=== PATIENT | female | born 1955 | race African-American/Black ===

== ENCOUNTER 2016-12-06 13:17 | Inpatient (IN) ==
[2016-12-06] MEDS ORDERED: SODIUM CHLORIDE 0.9% 1,000 ML IV STA (13:40)
--- NOTE | 2016-12-06 14:13 | Emergency Department Note ---
I, Erika Jones, am scribing for, and in the presence of, Bree Welsh DO 14:03. IBlaise Debra, DO, personally performed the services described in this documentation, ascribed by Erika Jones in my presence, and it is both accurate and complete 413 . Arrival - Arrival Chief Complaint: Weakness Stated Complaint: weak ED Nursing Triage Note: C/O HAVING WEAKNESS SINCE WAKING UP THIS MORNING, STATES BOTH OF HER LEGS ARE CRAMPING., STATES WHEN SHE TRIES TO STAND UP SHE GETS DIZZY , MOVEMENT MAKES DIZZINESS WORSE., DENIES HAVING ANY PAIN , " JUST FEEL BAD" , STATES HER GLUCOSE LEVEL HAS BEEN UP AND DOWN Mode of Arrival: Ambulatory Limitations: No Limitations Source: Patient, RN Notes Reviewed Time Seen by Provider: 12/06/16 13:38 - History of Present Illness HPI Narrative: Patient is a 61 y/o black female presenting to the ED accompanied by daughter with c/o vertigo with an onset of a few weeks, worsening today. Patient reports that vertigo occurs most often upon changing position and exertional activities. She states that while hanging clothes up she became near syncopal. Patient experienced some bilateral leg cramps that onset this morning around 0200/0300 and has since felt weak. Patient does have a history of diabetes mellitus, but levels have remained within normal limits. Patient has no other complaint/pain. Allergies/Adverse Reactions: Allergies Allergy/AdvReac Type Severity Reaction Status Date / Time No Known Allergies Allergy Unverified 12/06/16 13:24 Home Medications: Home Medications Medication Instructions Recorded Confirmed Type Aspirin EC Tab 81 mg PO QAM 12/06/16 12/06/16 History Lisinopril 20 mg PO QAM 12/06/16 12/06/16 History Potassium Chloride [Klor-Con M20] 20 meq PO QAM 12/06/16 12/06/16 History Triamterene/Hydrochlorothiazid 1 each PO QAM 12/06/16 12/06/16 History [Triamterene-Hctz 75-50 mg Tab] glyBURIDE [Glyburide] 10 mg PO BID 12/06/16 12/06/16 History metFORMIN [Glucophage] 1,000 mg PO BID W/MEALS 12/06/16 12/06/16 History Review of System - Review of System 12 point system: reviewed and no additional remarkable complaints except as stated - Review of System Constitutional: Present: weakness Respiratory: Absent: respiratory distress Cardiovascular: Present: as per HPI, syncope. Absent: chest pain Gastrointestinal: Absent: abdominal pain, nausea, vomiting, diarrhea, constipation Genitourinary female: Absent: dysuria, frequency, urgency Musculoskeletal: Absent: arm pain, back pain, leg pain, neck pain Skin: Absent: rash Neurological: Present: vertigo. Absent: headache Psychiatric: Absent: anxiety, depression Hematological/Lymphatic: Absent: easy bleeding, easy bruising Medical,Surgical,& Family Hx - Medical History Cardio: History of: Hypertension Endocrine: History of: Diabetes Mellitus (IDDM), Diabetes Mellitus (NIDDM), Dyslipidemia Respiratory: History of: Asthma - Social History Smoking Status: Never smoker Frequency of Alcohol Use: None Type of Drug Use: None Exam Vital Signs: Vital Signs Temperature 97.6 F 12/06/16 13:19 Pulse Rate 101 H 12/06/16 13:19 Respiratory Rate 16 12/06/16 14:15 Blood Pressure 137/96 12/06/16 13:19 O2 Sat by Pulse Oximetry 96 12/06/16 13:19 - General General appearance: alert, in no apparent distress - Head Head exam: Present: atraumatic, normocephalic, normal inspection - Eye Eye exam: Present: normal appearance, PERRL, EOMI - ENT ENT exam: Present: mucous membranes dry, other (pale mucous membranes). Absent : normal oropharynx - Neck Neck exam: Present: normal inspection, full ROM, trachea midline - Chest Chest inspection: Present: normal inspection, symmetric chest wall rise - Respiratory Respiratory exam: Present: normal lung sounds bilaterally. Absent: rales, rhonchi, wheezes - Cardiovascular Cardiovascular exam: Present: normal rhythm, tachycardia, normal heart sounds. Absent: regular rate, murmur, rubs, gallop - Abdominal Exam Abdominal exam: Present: soft, distention, normal bowel sounds. Absent: tenderness - Extremities Exam Extremities exam: Present: normal inspection. Absent: pedal edema - Back Exam Back exam: Present: normal inspection - Neurological Exam Neurological exam: Present: alert, oriented X3, CN II-XII intact. Absent: motor sensory deficit - Psychiatric Psychiatric exam: Present: normal affect, normal mood - Skin Skin exam: Present: warm, dry, intact, normal color Course Course Narrative: spoke with Griffin who will admit pt to hospitalist service Results - Labs CBC & BMP: 12/06/16 14:03 12/06/16 14:03 Lab Results: I have reviewed the patients labs Labs: Laboratory Tests 12/06/16 12/06/16 13:40 14:03 Sodium 133 L Potassium 4.8 Chloride 99 Carbon Dioxide 26 BUN 23 H Creatinine 1.20 H Glucose 178 H Albumin 2.8 L Globulin 4.6 H Albumin/Globulin Ratio 0.6 L Urine Color Yellow Urine Appearance Cloudy Urine pH 6.0 Ur Specific [place] 1.013 Urine Protein Negative Urine Glucose (UA) 50 Urine Ketones Negative Urine Blood Negative Urine Nitrate Negative Urine Bilirubin Negative Urine Urobilinogen < 2.0 H Urine Leukocytes Moderate H Urine RBC 1 Urine WBC 3 Ur Squamous Epith Cells Occasional Urine Bacteria Occasional Laboratory Tests 12/06/16 14:03 WBC 9.5 RBC 3.84 Hgb 7.2 L Hct 25.6 L MCV 66.7 L MCH 19 L MCHC 28.1 L RDW 18.0 H Plt Count 495 H Lymph % (Auto) 14.5 L [place] # (Auto) 1.0 H Disposition Clinical Impression: Anemia Case discussed with: patient, patient's family Disposition: Still a Patient Condition: Stable Time of Disposition: 16:44
[2016-12-06 14:21] LABS: Basophils % 0.4 % (0.0-0.8); Eosinophils # 0.2 10*3/uL (0.0-0.87); Eosinophils % 1.8 % (0.00-10.9); Hematocrit 25.6 VOL% (35.7-47.0); Hemoglobin 7.2 GM/DL (12.0-16.0); Immature Granulocytes % 0.6 %; Immature Granulocytes Absolute 0.06 #; Lymphocytes # 1.4 10*3/uL (1.4-4.0); Lymphocytes % 14.5 % (21.3-54.2); Mean Corpuscular HGB Conc 28.1 GM/DL (32-36); Mean Corpuscular Hemoglobin 19 PG (27-34); Mean Corpuscular Volume 66.7 FL (87-102); Mean Platelet Volume 11.1 FL (9.6-12.0); Monocytes % 10.6 % (1.7-12.7); Neutrophils # 6.8 10*3/uL (1.4-7.4); Neutrophils % 72.1 % (38.7-73.9); Platelet Count 495 T/CUMM (130-400); Red Blood Count 3.84 MC/CUMM (3.8-5.5); White Blood Count 9.5 T/CUMM (4-12)
[2016-12-06 14:40] LABS: Alanine Aminotransferase 19 U/L (13-56); Albumin 2.8 G/DL (3.4-5.0); Alkaline Phosphatase 97 U/L (45-117); Aspartate Amino Transferase 18 U/L (0-37); Bilirubin,Total < 0.39 MG/DL (0.2-1.0); Blood Urea Nitrogen 23 MG/DL (7-18); Calcium 9.8 MG/DL (8.5-10.1); Glucose 178 MG/DL (74-106); Osmolality,Calculated 273.4 MOS/KG (273-304); Potassium 4.8 MMOL/L (3.5-5.1); Sodium 133 MMOL/L (136-145); Total Protein 7.4 G/DL (6.4-8.3)
[2016-12-06 14:40] LABS: Apearance,Urine CLOUDY (Clear); Bacteria,Urine Occasional /HPF (Few); Bilirubin,Urine Negative (Negative); Blood, Urine Negative (Negative); Glucose,Urine (UA) 50 mg/dL (Negative); Ketones,Urine Negative (Negative); Nitrite,Urine Negative (Negative); Protein,Urine Negative; RBC,Urine 1 /HPF (0-4); Squamous Epithelial Cell,Urine Occasional /HPF (0-10); Urine Color Yellow (Yellow); Urine Specific Gravity 1.013 (1.001-1.035); Urine Urobilinogen < 2.0 EU/DL (0.2-1.0); WBC,Urine 3 /HPF (0-6)
--- NOTE | 2016-12-06 17:29 | Hospitalist History & Physical ---
Assessment and Plan - Time spent with patient Time spent with patient: Greater than 30 minutes (1) Anemia Status: Acute Assessment and plan: Patient is being admitted for anemia. We are ordering orthostatic vital signs as well as stool for occult blood along with anemia studies. She is currently hemodynamically stable without any evidence of active bleeding therefore will type and screen and not transfuse unless she becomes symptomatic or hemodynamically unstable. Will begin proton pump inhibitor and consider outpatient versus inpatient GI evaluation. She states that she has outpatient colonoscopy scheduled for Thursday and [place], [place]. Current Visit: Yes (2) Hypertension Status: Chronic Assessment and plan: She is currently hemodynamically stable. We will continue her current medical regimen. Current Visit: Yes Qualifiers: Hypertension type: essential hypertension Qualified Code(s): I10 - Essential (primary) hypertension (3) Diabetes mellitus Status: Chronic Assessment and plan: We will continue her current medical regimen along with Accu-Cheks and sliding scale. Current Visit: Yes Qualifiers: Diabetes mellitus type: type 2 History of Present Illness Chief complaint: Legs cramping and dizziness History of present illness: Ms. Olguin is a 61 year old -[place] female who states this morning she began having bilateral lower extremity muscle cramps. Later in the morning she was standing up and felt lightheaded without distinct vertigo, had mild shortness of breath associated with this and did break out in a sweat. However throughout the day she had no distinct positional symptomatology. She is currently sitting on the side of bed without complaints. She denies any recent fever, chills, nausea, vomiting, diarrhea, constipation, melena, hematochezia, hematemesis, headache, visual or auditory disturbances, focal motor weakness or paresthesias, vertigo, tinnitus, hearing loss, upper respiratory tract symptoms , weight loss, dysuria, hematuria, urinary frequency urgency or incontinence. She denies any frequent heartburn or indigestion but does have occasional upset stomach. She states that she has lactose intolerance. She has had prior colonoscopy but has been many years ago and she does have an outpatient colonoscopy scheduled in [place], [place] on Thursday. Her primary care provider is in [place], [place]. Home Medications Medication Instructions Recorded Confirmed Type Aspirin EC Tab 81 mg PO QAM 12/06/16 12/06/16 History Lisinopril 20 mg PO QAM 12/06/16 12/06/16 History Potassium Chloride [Klor-Con M20] 20 meq PO QAM 12/06/16 12/06/16 History Triamterene/Hydrochlorothiazid 1 each PO QAM 12/06/16 12/06/16 History [Triamterene-Hctz 75-50 mg Tab] glyBURIDE [Glyburide] 10 mg PO BID 12/06/16 12/06/16 History metFORMIN [Glucophage] 1,000 mg PO BID W/MEALS 12/06/16 12/06/16 History Allergies Allergy/AdvReac Type Severity Reaction Status Date / Time No Known Allergies Allergy Unverified 12/06/16 13:24 Medical,Surgical,& Family Hx - Medical History Cardio: History of: Hypertension Endocrine: History of: Diabetes Mellitus (NIDDM), Dyslipidemia Respiratory: History of: Asthma - Surgical History Reproductive Surgeries: Surgical HX of;: Hysterectomy - Family History Family History: Reports;: Family Cancer (She has several aunts with cancer) - Social History Smoking Status: Never smoker Frequency of Alcohol Use: None Type of Drug Use: None Functional capacity: independent ambulation 12 point system: reviewed and no additional remarkable complaints except as stated Exam - Constitutional Vitals: Period Temp Pulse Resp BP Sys/Lauren Pulse Ox Last 24 Hr 97.6 F 101 16-20 137/96 96 General appearance: no acute distress - Head Head exam: Present: normocephalic, atraumatic - Eye Eye exam: Present: EOMI, other (Pale conjunctiva) Pupils: Present: MYRA - ENT ENT exam: Present: normal oropharynx - Neck Neck exam: Present: normal inspection. Absent: lymphadenopathy, meningismus, tenderness, thyromegaly - Respiratory Respiratory exam: Present: clear to auscultation bilaterally. Absent: rales, rhonchi, wheezes - Cardiovascular Cardiovascular exam: Present: regular rate and rhythm. Absent: gallop, JVD, rubs, systolic murmur, tachycardia - GI/Abdominal GI/Abdominal exam: Present: normal bowel sounds, soft. Absent: ascites, distended, mass, organomegaly, tenderness, rebound - Extremities Exam Extremities exam: Present: normal capillary refill. Absent: calf tenderness, edema - Back Exam Back exam: Present: normal inspection. Absent: CVA tenderness (L), CVA tenderness (R) - Neurological Exam Neurological exam: Present: alert, oriented X3, CN II-XII intact. Absent: motor sensory deficit - Psychiatric Psychiatric exam: Present: normal affect, normal mood. Absent: agitated, anxious - Skin Skin exam: Present: warm, dry. Absent: erythema, petechiae, rash Results - Labs CBC & BMP: 12/06/16 14:03 12/06/16 14:03 Lab Results: I have reviewed the past 24 hour labs Quality Measures - VTE Deep Vein Thrombosis/Pulmonary Embolism Present on Admission: No
[2016-12-06] MEDS ORDERED: PANTOPRAZOLE 40 MG VIAL IV STA (17:43)
[2016-12-06] MEDS ORDERED: PANTOPRAZOLE 40 MG VIAL IV ONE (18:03)
[2016-12-06] MEDS ORDERED: GLUCAGON 1 MG VIAL IM PRN (18:42)
[2016-12-06] MEDS ORDERED: ONDANSETRON 4 MG/2 ML VIAL IV PRN (18:42)
[2016-12-06] MEDS ORDERED: DEXTROSE 50% 25 GM/50 ML VIAL IV PRN (18:42)
[2016-12-06] MEDS: SODIUM CHLORIDE 0.9% 1,000 ML IV SCH (20:21)
[2016-12-06] MEDS: glyBURIDE 5 MG TABLET PO SCH (21:07)
[2016-12-06] MEDS: INSULIN LISPRO 100 UNIT/ML SUBCUT SCH (21:19)
[2016-12-06 21:37] LABS: Basophils % 0.3 % (0.0-0.8); Eosinophils # 0.2 10*3/uL (0.0-0.87); Eosinophils % 2.8 % (0.00-10.9); Hematocrit 23.4 VOL% (35.7-47.0); Hemoglobin 6.5 GM/DL (12.0-16.0); Immature Granulocytes % 0.4 %; Immature Granulocytes Absolute 0.03 #; Lymphocytes # 1.9 10*3/uL (1.4-4.0); Lymphocytes % 23.5 % (21.3-54.2); Mean Corpuscular HGB Conc 27.8 GM/DL (32-36); Mean Corpuscular Hemoglobin 19 PG (27-34); Mean Corpuscular Volume 66.9 FL (87-102); Mean Platelet Volume 10.8 FL (9.6-12.0); Monocytes % 12.5 % (1.7-12.7); Neutrophils # 4.9 10*3/uL (1.4-7.4); Neutrophils % 60.5 % (38.7-73.9); Platelet Count 459 T/CUMM (130-400); Red Cell Distribution Width 18.1 % (9.3-17.3)
[2016-12-06 22:00] LABS: Folate > 24.0 NG/ML (5.4-24.0); Vitamin B12 814 PG/ML (211-911)
[2016-12-06 23:34] LABS: Anisocytosis 1+
[2016-12-06 23:35] LABS: Hypochromasia 2+; Platelet Estimate Increased; Polychromasia 1+
[2016-12-07 01:10] LABS: Sedimentation Rate-Westergren 72 MM/HR (0-30)
[2016-12-07] MEDS: SODIUM CHLORIDE 0.9% 1,000 ML IV SCH ×3 (02:08→12:23)
[2016-12-07 06:11] LABS: Basophils % 0.3 % (0.0-0.8); Eosinophils # 0.2 10*3/uL (0.0-0.87); Eosinophils % 3.1 % (0.00-10.9); Hematocrit 22.6 VOL% (35.7-47.0); Immature Granulocytes % 0.5 %; Immature Granulocytes Absolute 0.04 #; Lymphocytes # 1.2 10*3/uL (1.4-4.0); Lymphocytes % 16.6 % (21.3-54.2); Mean Corpuscular HGB Conc 26.5 GM/DL (32-36); Mean Corpuscular Hemoglobin 18 PG (27-34); Mean Corpuscular Volume 68.9 FL (87-102); Mean Platelet Volume 11.5 FL (9.6-12.0); Monocytes # 0.9 10*3/uL (0.11-0.8); Monocytes % 11.5 % (1.7-12.7); Neutrophils # 5.1 10*3/uL (1.4-7.4); Platelet Count 465 T/CUMM (130-400); Red Blood Count 3.28 MC/CUMM (3.8-5.5); Red Cell Distribution Width 18.1 % (9.3-17.3); White Blood Count 7.5 T/CUMM (4-12)
[2016-12-07 06:23] LABS: Calcium 8.8 MG/DL (8.5-10.1); Osmolality,Calculated 279.7 MOS/KG (273-304); Potassium 4.6 MMOL/L (3.5-5.1); Thyroid Stimulating Hormone 1.31 uIU/ml (0.358-3.74)
[2016-12-07 06:59] LABS: Elliptocytes Few; Hypochromasia 1+; Microcytosis Slight; Platelet Estimate Increased
[2016-12-07] MEDS ORDERED: metFORMIN 500 MG TABLET PO SCH (08:00)
[2016-12-07] MEDS ORDERED: LISINOPRIL 20 MG TABLET PO SCH (09:00)
[2016-12-07] MEDS ORDERED: POTASSIUM CHLORIDE 20 MEQ TABLET PO SCH (09:00)
[2016-12-07] MEDS ORDERED: TRIAMTERENE/HCTZ 75-50 MG TABLET PO SCH (09:00)
[2016-12-07] MEDS: ASPIRIN EC 81 MG TABLET PO SCH (09:17)
[2016-12-07] MEDS: PANTOPRAZOLE 40 MG VIAL IV SCH (09:17)
[2016-12-07] MEDS: INSULIN LISPRO 100 UNIT/ML SUBCUT SCH ×4 (09:17→21:49)
[2016-12-07] MEDS: glyBURIDE 5 MG TABLET PO SCH ×2 (09:18→21:51)
[2016-12-07 11:14] LABS: Hematocrit 23.2 VOL% (35.7-47.0)
[2016-12-07 11:16] LABS: Hemoglobin 6.4 GM/DL (12.0-16.0)
--- NOTE | 2016-12-07 12:17 | Hospitalist Progress Note ---
Assessment and Plan (1) Lower GI bleed Status: Acute Assessment and plan: Complains of rectal bleeding. Dr. Cheney to see her today. Current Visit: Yes (2) Acute blood loss anemia Status: Acute Assessment and plan: Will receive 2 units of packed red blood cells today and as needed order for hemoglobin less than 8., Serial hemoglobins every 6 hours Current Visit: Yes (3) Hypertension Status: Chronic Assessment and plan: Blood pressure stable, will decrease the lisinopril to 10 Current Visit: Yes Qualifiers: Hypertension type: essential hypertension Qualified Code(s): I10 - Essential (primary) hypertension (4) Diabetes mellitus Status: Chronic Assessment and plan: Changing her to a clear liquid diet. I will stop her metformin. I will decrease her Lantus by 50% in anticipation of endoscopy. Current Visit: Yes Qualifiers: Diabetes mellitus type: type 2 Hospitalist: Subjective Interval history: Patient reports history of rectal bleeding. She was set up to have an outpatient colonoscopy in [place] by a doctor who comes there from [place]. She presents to the emergency room with complaints of rectal bleeding. She denies weakness but has some fatigue. I will give her 2 units of packed red blood cells today and put her on a clear liquid diet. Exam - Constitutional Vitals: Period Temp Pulse Resp BP Sys/Lauren Pulse Ox Last 24 Hr 97.7 F-99.2 F 75-90 16-89 85-126/60-76 96-100 Exam: Heart Rate-[RRR] Lungs-[CTAB] GI-[+bs soft, NT] Ext-[no edema] Neuro [Motor 5/5], [alert and oriented times 3] psych [normal mood and affect] General [no acute distress] Results - Labs CBC & BMP: 12/07/16 10:52 12/07/16 04:32 Lab Results: I have reviewed the past 24 hour labs Labs: Urine culture growing gram-positive cocci but only has colonies of 40,000. This is a contaminant most likely and will not be treated as a UTI. Quality Measures - VTE Deep Vein Thrombosis/Pulmonary Embolism Present on Admission: No
--- NOTE | 2016-12-07 12:57 | Gastrointestinal Consult Note ---
Assessment and Plan (1) Iron deficiency anemia Status: Acute Assessment and plan: Patient admitted with symptomatic anemia. She has had no overt active bleeding prior to this. She does describe some occasional bright red blood in stool which sounds anorectal. Some epigastric pain has been noted of late. Agree with plan for transfusion today to correct anemia. Plan probable EGD tomorrow morning and colonoscopy Thursday. Empiric PPI therapy for now. Current Visit: Yes History of Present Illness Chief complaint: Weakness, symptomatic anemia History of present illness: Ms. Olguin is a 61 year old female type II diabetic with hypertension who was admitted after presenting with marked weakness and dizziness. She was noted to have hemoglobin 7.2. Patient states that she has noted no gross GI bleeding other than occasional bright red blood in her stool. She has had some epigastric discomfort off and on for the last several weeks. She denies any difficulty swallowing, nausea/vomiting, or change in bowel movements. Patient denies taking nonsteroidal products. She is noted to have evidence of iron deficiency with ferritin of 8. Patient states that she has lost around 10 pounds of weight. Home Medications Medication Instructions Recorded Confirmed Type Aspirin EC Tab 81 mg PO QAM 12/06/16 12/06/16 History Insulin Glargine [Lantus] 20 unit SUBCUT BEDTIME 12/06/16 12/06/16 History Lisinopril 20 mg PO QAM 12/06/16 12/06/16 History Potassium Chloride [Klor-Con M20] 20 meq PO QAM 12/06/16 12/06/16 History Triamterene/Hydrochlorothiazid 1 each PO QAM 12/06/16 12/06/16 History [Triamterene-Hctz 75-50 mg Tab] glyBURIDE [Glyburide] 10 mg PO BID W/MEALS 12/06/16 12/06/16 History metFORMIN [Glucophage] 1,000 mg PO BID W/MEALS 12/06/16 12/06/16 History Allergies Allergy/AdvReac Type Severity Reaction Status Date / Time No Known Allergies Allergy Unverified 12/06/16 13:24 Medical,Surgical,& Family Hx - Medical History Cardio: History of: Hypertension Endocrine: History of: Diabetes Mellitus (IDDM), Diabetes Mellitus (NIDDM), Dyslipidemia Respiratory: History of: Asthma - Surgical History Reproductive Surgeries: Surgical HX of;: Hysterectomy - Family History Family History: Reports;: Family Diabetes (mother), Family Heart Disease (father -mi), Family Hypertension (mother) Denies;: Family Anesthesia Reaction, Family Cancer, Family Hematology, Family Psychiatric Problems, Family Stroke, Additional Family History - Social History Smoking Status: Never smoker Frequency of Alcohol Use: None Type of Drug Use: None - Constitutional Constitutional: Present: fatigue, weakness, weight loss. Absent: chills, fever( s) - EENT Nose, mouth and throat: Absent: dysphagia, epistaxis - Cardiovascular Cardiovascular: Present: dyspnea on exertion. Absent: chest pain with activity , orthopnea, PND - Respiratory Respiratory: Absent: cough, hemoptysis - Gastrointestinal Gastrointestinal: Present: as per HPI, abdominal pain (Epigastric pain). Absent : hematemesis, melena, nausea, vomiting - Genitourinary Genitourinary: Absent: dysuria, flank pain, hematuria - Neurological Neurological: Absent: abnormal speech, behavioral changes, focal weakness - Hematologic/Lymphatic Hematologic/Lymphatic: Absent: easy bleeding, easy bruising Exam - Constitutional Vitals: Period Temp Pulse Resp BP Sys/Lauren Pulse Ox Last 24 Hr 97.7 F-99.2 F 75-90 16-89 85-126/60-76 96-100 General appearance: no acute distress, over weight - Head Head exam: Present: normocephalic, atraumatic - Eye Eye exam: Present: EOMI. Absent: scleral icterus - Respiratory Respiratory exam: Present: clear to auscultation bilaterally. Absent: wheezes - Cardiovascular Cardiovascular exam: Present: regular rate and rhythm. Absent: gallop, rubs - GI/Abdominal GI/Abdominal exam: Present: normal bowel sounds, soft. Absent: distended, organomegaly, tenderness - Extremities Exam Extremities exam: Absent: calf tenderness, edema - Neurological Exam Neurological exam: Present: alert, oriented X3, CN II-XII intact. Absent: motor sensory deficit - Psychiatric Psychiatric exam: Present: normal affect, normal mood - Skin Skin exam: Present: warm, dry Results - Labs CBC & BMP: 12/07/16 10:52 12/07/16 04:32 Lab Results: I have reviewed the past 24 hour labs Quality Measures - VTE Deep Vein Thrombosis/Pulmonary Embolism Present on Admission: No
[2016-12-07 19:55] LABS: Hematocrit 31.8 VOL% (35.7-47.0)
[2016-12-07 19:58] LABS: Hemoglobin 9.4 GM/DL (12.0-16.0)
[2016-12-07] MEDS ORDERED: INSULIN GLARGINE 100 UNIT/ML SUBCUT SCH (21:00)
[2016-12-07] MEDS: INSULIN GLARGINE 100 UNIT/ML SUBCUT SCH (21:48)
[2016-12-08 08:23] LABS: Hemoglobin A1 (Alkaline) 97.8 % (96.5-98.5); Hemoglobin A2 (Alkaline) 2.2 % (1.5-3.5)
[2016-12-08] MEDS: PANTOPRAZOLE 40 MG VIAL IV SCH ×2 (09:36→14:23)
[2016-12-08] MEDS ORDERED: LIDOCAINE 100 MG/5 ML SYRINGE ONE (12:00)
[2016-12-08] MEDS ORDERED: PROPOFOL 200 MG/20 ML VIAL IV ONE (12:00)
--- NOTE | 2016-12-08 12:50 | History and Physical Update ---
History and Physical Update - History and Physical H&P was reviewed, the patient examined and there: are no changes in the patients condition since last H&P was completed. - Physical Exam Mental Status: alert and oriented Heart: regular rate and rhythm Lung: clear to auscultation Abdomen: within normal limits Vitals: within normal limits
--- NOTE | 2016-12-08 12:51 | Operative Note ---
Date of procedure: 12/08/16 Pre-op diagnosis: Iron deficiency anemia Procedure: Procedure: Esophagogastroduodenoscopy Brief clinical abstract: Patient is a 61-year-old female admitted with symptomatic anemia. She has seen occasional bright red blood in her stool but no gross active bleeding. Patient has had some epigastric discomfort intermittently of recent. Indication for procedure: Epigastric pain, weight loss Endoscopic findings:[After informed consent was obtained, the patient was placed in the left lateral decubitus position. The gastroscope was inserted in the upper esophagus under direct vision with no resistance encountered. Esophageal mucosa was notable for few scattered areas of whitish exudate in the esophagus consistent with candidiasis. Squamocolumnar junction was sharply demarcated at the diaphragmatic indentation. The endoscope was advanced in the stomach which was carefully examined including retroflexed view of the cardia and fundus with no abnormality seen. The pyloric channel, duodenal bulb, second and third portion of the duodenum appeared normal. The endoscope was withdrawn and patient appeared to tolerate the procedure well. Impression: Mild esophageal candidiasis-otherwise normal EGD Recommendations: Colonoscopy tomorrow a.m. If stable, could probably discharge tomorrow after that procedure. Anesthesia: MAC Surgeon / Physician: Eulogio Cheney Estimated blood loss: none Specimens: none sent Condition: stable Disposition: post procedure unit Results - Labs CBC & BMP: 12/08/16 00:20 12/07/16 04:32 Discharge Plan - Discharge Medications No Action Triamterene/Hydrochlorothiazid [Triamterene-Hctz 75-50 mg Tab] 1 each PO QAM Potassium Chloride [Klor-Con M20] 20 meq PO QAM metFORMIN [Glucophage] 1,000 mg PO BID W/MEALS Aspirin EC Tab 81 mg PO QAM Lisinopril 20 mg PO QAM glyBURIDE [Glyburide] 10 mg PO BID W/MEALS Insulin Glargine [Lantus] 20 unit SUBCUT BEDTIME - Follow Up or Referral - Forms/Instructions
--- NOTE | 2016-12-08 13:07 | Anesthesia Post-Op ---
Anesthesia Post OP - Post Ansesthetic Evaluation Patient seen in post op: Yes Resp: within normal limits CV: within normal limits Mental: within normal limits Temp: within normal limits [id number]: within normal limits Nausea and Vomiting: within normal limits Pain: within normal limits
[2016-12-08] MEDS: INSULIN LISPRO 100 UNIT/ML SUBCUT SCH ×3 (14:05→21:44)
[2016-12-08] MEDS: ASPIRIN EC 81 MG TABLET PO SCH (14:23)
[2016-12-08] MEDS: LISINOPRIL 10 MG TABLET PO SCH (14:23)
[2016-12-08] MEDS: glyBURIDE 5 MG TABLET PO SCH ×2 (14:23→21:44)
[2016-12-08] MEDS: FLUCONAZOLE 100 MG TABLET PO SCH (14:24)
[2016-12-08] MEDS: SODIUM CHLORIDE 0.9% 1,000 ML IV SCH ×2 (14:25)
[2016-12-08] MEDS ORDERED: POLYETHYLENE GLYCOL POWDER 255 GM BOTTLE PO ONE (16:00)
[2016-12-08] MEDS: DESITIN 4OZ/NYSTATIN 15 GRAM MIXTURE PASTE TOP SCH ×2 (16:11→21:45)
--- NOTE | 2016-12-08 16:48 | Hospitalist Progress Note ---
Assessment and Plan (1) Anemia Status: Acute Current Visit: Yes (2) Hypertension Status: Chronic Current Visit: Yes Qualifiers: Hypertension type: essential hypertension Qualified Code(s): I10 - Essential (primary) hypertension (3) Diabetes mellitus Status: Chronic Current Visit: Yes Qualifiers: Diabetes mellitus type: type 2 (4) Lower GI bleed Status: Acute Current Visit: Yes Hospitalist: Subjective Interval history: No acute events overnight. Patient without complaints today. EGD today with mild esophageal candidiasis only. Plan is for colonoscopy tomorrow. Exam - Constitutional Vitals: Period Temp Pulse Resp BP Sys/Lauren Pulse Ox Last 24 Hr 97 F-99.0 F 62-85 16-22 106-137/61-95 94-100 General appearance: over weight - Head Head exam: Present: normocephalic, atraumatic - Eye Eye exam: Present: EOMI Pupils: Present: MYRA - ENT ENT exam: Present: normal exam - Neck Neck exam: Present: normal inspection - Respiratory Respiratory exam: Present: clear to auscultation bilaterally. Absent: rhonchi, wheezes - Cardiovascular Cardiovascular exam: Present: regular rate and rhythm - GI/Abdominal GI/Abdominal exam: Present: normal bowel sounds, soft. Absent: tenderness, rebound - Extremities Exam Extremities exam: Present: normal inspection - Back Exam Back exam: Present: normal inspection - Neurological Exam Neurological exam: Present: alert, oriented X3 - Psychiatric Psychiatric exam: Present: normal affect, normal mood - Skin Skin exam: Present: warm, intact Results - Labs CBC & BMP: 12/08/16 00:20 12/07/16 04:32 Quality Measures - VTE Deep Vein Thrombosis/Pulmonary Embolism Present on Admission: No
[2016-12-08] MEDS: INSULIN GLARGINE 100 UNIT/ML SUBCUT SCH (21:45)
[2016-12-09 05:45] LABS: Basophils % 0.6 % (0.0-0.8); Eosinophils # 0.2 10*3/uL (0.0-0.87); Eosinophils % 3.4 % (0.00-10.9); Hematocrit 31.7 VOL% (35.7-47.0); Hemoglobin 9.2 GM/DL (12.0-16.0); Immature Granulocytes % 0.4 %; Immature Granulocytes Absolute 0.03 #; Lymphocytes # 1.3 10*3/uL (1.4-4.0); Mean Corpuscular Hemoglobin 21 PG (27-34); Mean Corpuscular Volume 73.2 FL (87-102); Mean Platelet Volume 10.8 FL (9.6-12.0); Monocytes % 13.5 % (1.7-12.7); Neutrophils # 4.6 10*3/uL (1.4-7.4); Neutrophils % 64.1 % (38.7-73.9); Platelet Count 477 T/CUMM (130-400); Red Blood Count 4.33 MC/CUMM (3.8-5.5); Red Cell Distribution Width 20.7 % (9.3-17.3); White Blood Count 7.1 T/CUMM (4-12)
[2016-12-09] MEDS ORDERED: MAGNESIUM CITRATE 300 ML BOTTLE PO ONE (06:00)
[2016-12-09 06:03] LABS: Hypochromasia 1+; Microcytosis 1+; Ovalocytes Slight; Spherocytes Slight
[2016-12-09 06:04] LABS: Target Cells Slight
[2016-12-09 06:05] LABS: Anisocytosis 1+
[2016-12-09] MEDS: INSULIN LISPRO 100 UNIT/ML SUBCUT SCH ×4 (07:30→21:09)
[2016-12-09] MEDS: PANTOPRAZOLE 40 MG VIAL IV SCH (10:28)
--- NOTE | 2016-12-09 13:00 | Operative Note ---
Date of procedure: 12/09/16 Pre-op diagnosis: Iron deficiency anemia Procedure: Procedure note: Colonoscopy with biopsies ascending colon mass Physician: Dr. Sascha Cheney Brief clinical abstract: Patient is a 61-year-old female admitted with symptomatic iron deficiency anemia. She has had no real localizing GI symptoms. She sees occasional small amounts of bright red blood in her stool. Endoscopic findings: After informed consent was obtained, the patient was placed in the left lateral decubitus position. Digital rectal exam was performed with no palpable abnormalities felt. Pediatric videocolonoscope was inserted into the rectum and advanced to the cecum without difficulty. There was a 4-5 cm long exophytic friable mass extending from the proximal ascending colon into the cecum. It was near circumferential in portions of this. Multiple biopsies were obtained from this for pathologic examination and it was noted to have firm consistency. I did not jairon this as the ileocecal valve was visible from the standpoint of the mass. Bowel prep was of good quality. Withdrawal time was over 6 minutes duration. No other polyps were noted distal to this. A few diverticuli were noted in the left colon. The endoscope was withdrawn in the rectum with retroflex view showing small internal hemorrhoids. The endoscope was removed and she appeared to tolerate the procedure well. 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 Serum CEA level. She will need surgical evaluation also. Anesthesia: MAC Surgeon / Physician: Eulogio Cheney Estimated blood loss: minimal Specimens: other (Proximal ascending colon mass) Condition: stable Disposition: post procedure unit Results - Labs CBC & BMP: 12/09/16 04:44 12/07/16 04:32 Discharge Plan - Discharge Medications No Action Triamterene/Hydrochlorothiazid [Triamterene-Hctz 75-50 mg Tab] 1 each PO QAM Potassium Chloride [Klor-Con M20] 20 meq PO QAM metFORMIN [Glucophage] 1,000 mg PO BID W/MEALS Aspirin EC Tab 81 mg PO QAM Lisinopril 20 mg PO QAM glyBURIDE [Glyburide] 10 mg PO BID W/MEALS Insulin Glargine [Lantus] 20 unit SUBCUT BEDTIME - Follow Up or Referral - Forms/Instructions
--- NOTE | 2016-12-09 13:05 | Anesthesia Post-Op ---
Anesthesia Post OP - Post Ansesthetic Evaluation Patient seen in post op: Yes Resp: within normal limits CV: within normal limits Mental: within normal limits Temp: within normal limits Onbf-Ni-Nwgkyqhwa: within normal limits Nausea and Vomiting: within normal limits Pain: within normal limits
--- NOTE | 2016-12-09 15:40 | Hospitalist Progress Note ---
Assessment and Plan (1) Anemia Status: Acute Current Visit: Yes (2) Hypertension Status: Chronic Current Visit: Yes Qualifiers: Hypertension type: essential hypertension Qualified Code(s): I10 - Essential (primary) hypertension (3) Diabetes mellitus Status: Chronic Current Visit: Yes Qualifiers: Diabetes mellitus type: type 2 (4) Lower GI bleed Status: Acute Current Visit: Yes Hospitalist: Subjective Interval history: No acute events overnight. Colonoscopy today with proximal ascending colon mass. CT has been ordered and surgery has been consulted. H/H is stable. Exam - Constitutional Vitals: Period Temp Pulse Resp BP Sys/Lauren Pulse Ox Last 24 Hr 97.1 F-98.6 F 64-84 15-18 112-131/66-78 96-100 General appearance: over weight - Head Head exam: Present: normocephalic, atraumatic - Eye Eye exam: Present: EOMI Pupils: Present: MYRA - ENT ENT exam: Present: normal exam - Neck Neck exam: Present: normal inspection - Respiratory Respiratory exam: Present: clear to auscultation bilaterally. Absent: rhonchi, wheezes - Cardiovascular Cardiovascular exam: Present: regular rate and rhythm - GI/Abdominal GI/Abdominal exam: Present: normal bowel sounds, soft. Absent: tenderness, rebound - Extremities Exam Extremities exam: Present: normal inspection - Back Exam Back exam: Present: normal inspection - Neurological Exam Neurological exam: Present: alert, oriented X3 - Psychiatric Psychiatric exam: Present: normal affect, normal mood - Skin Skin exam: Present: warm, intact Results - Labs CBC & BMP: 12/09/16 04:44 12/07/16 04:32 Quality Measures - VTE Deep Vein Thrombosis/Pulmonary Embolism Present on Admission: No
--- NOTE | 2016-12-09 16:09 | General Surgery Consult Note ---
Assessment and Plan (1) Colonic mass Status: Acute Assessment and plan: CT scan and pathology are pending. Based on the conversation with Dr. Cheney , he is a competent this is adenocarcinoma. We will plan for resection pending CT has no alarming features. We discussed this can be done inpatient, but if her H&H is stable to this we plan outpatient and depending on the patient's preference. All questions were welcomed and answered. We will revisit the topic of timing after CT scan tomorrow. Current Visit: Yes History of Present Illness Chief complaint: Proximal ascending colon mass History of present illness: Ms. Olguin is a 61 year old female with past medical history of diabetes mellitus and hypertension who was recently admitted with symptomatic iron deficiency anemia. She underwent EGD which revealed candidal esophagitis and subsequently underwent colonoscopy today which identified a proximal ascending colon mass which was biopsied. A CT scan of the abdomen and pelvis is pending. I would been consulted for surgical recommendations. The patient denies fever, chills, riders, nausea, vomiting, diarrhea, melena, hematochezia, hematemesis, early satiety, anorexia or weight loss. She denies any bone pain or pulmonary symptoms. No focal neurologic symptoms. No family history of colon or breast cancer known. She recently had an aunt with "some type of stomach cancer." Home Medications Medication Instructions Recorded Confirmed Type Aspirin EC Tab 81 mg PO QAM 12/06/16 12/06/16 History Insulin Glargine [Lantus] 20 unit SUBCUT BEDTIME 12/06/16 12/06/16 History Lisinopril 20 mg PO QAM 12/06/16 12/06/16 History Potassium Chloride [Klor-Con M20] 20 meq PO QAM 12/06/16 12/06/16 History Triamterene/Hydrochlorothiazid 1 each PO QAM 12/06/16 12/06/16 History [Triamterene-Hctz 75-50 mg Tab] glyBURIDE [Glyburide] 10 mg PO BID W/MEALS 12/06/16 12/06/16 History metFORMIN [Glucophage] 1,000 mg PO BID W/MEALS 12/06/16 12/06/16 History Allergies Allergy/AdvReac Type Severity Reaction Status Date / Time No Known Allergies Allergy Unverified 12/06/16 13:24 Medical,Surgical,& Family Hx - Medical History Cardio: History of: Hypertension Neurology: No history of: Seizures Endocrine: History of: Diabetes Mellitus (IDDM), Diabetes Mellitus (NIDDM), Dyslipidemia Respiratory: History of: Asthma - Surgical History Reproductive Surgeries: Surgical HX of;: Hysterectomy - Family History Family History: Reports;: Family Diabetes (mother), Family Heart Disease (father -mi), Family Hypertension (mother) Denies;: Family Anesthesia Reaction, Family Cancer, Family Hematology, Family Psychiatric Problems, Family Stroke, Additional Family History - Social History Smoking Status: Never smoker Frequency of Alcohol Use: None Type of Drug Use: None - Constitutional Constitutional: Present: as per HPI - Respiratory Respiratory: Present: as per HPI - Gastrointestinal Gastrointestinal: Present: as per HPI - Genitourinary Genitourinary: Absent: dysuria, flank pain, hematuria - Musculoskeletal Musculoskeletal: Present: as per HPI - Neurological Neurological: Present: as per HPI Hematologic/Lymphatic: Present: as per HPI. Absent: easy bleeding, easy bruising Exam - Constitutional Vitals: Period Temp Pulse Resp BP Sys/Lauren Pulse Ox Last 24 Hr 97.1 F-98.6 F 64-84 15-18 112-127/66-78 96-100 General appearance: no acute distress, under weight, over weight - Head Head exam: Present: normal inspection, normocephalic - Respiratory Respiratory exam: Present: clear to auscultation bilaterally - Cardiovascular Cardiovascular exam: Present: RRR - GI/Abdominal GI/Abdominal exam: Present: normal bowel sounds, soft. Absent: distended, mass , organomegaly, tenderness - Extremities Exam Extremities exam: Absent: calf tenderness, edema - Neurological Exam Neurological exam: Present: alert, oriented X3 Speech: Present: normal - Skin Skin exam: Present: normal color, warm Quality Measures - VTE Deep Vein Thrombosis/Pulmonary Embolism Present on Admission: No Results - Labs CBC & BMP: 12/09/16 04:44 12/07/16 04:32 Labs: Biopsy prox ascending colon mass pending H/H stable - Diagnostic Findings Procedure: CT Abdomen and Pelvis: pending
[2016-12-09] MEDS: ASPIRIN EC 81 MG TABLET PO SCH (16:22)
[2016-12-09] MEDS: glyBURIDE 5 MG TABLET PO SCH ×2 (16:23→21:09)
[2016-12-09] MEDS: LISINOPRIL 10 MG TABLET PO SCH (16:23)
[2016-12-09] MEDS: FLUCONAZOLE 100 MG TABLET PO SCH (16:23)
[2016-12-09] MEDS: DESITIN 4OZ/NYSTATIN 15 GRAM MIXTURE PASTE TOP SCH ×2 (16:25→21:10)
[2016-12-09] MEDS: SODIUM CHLORIDE 0.9% 1,000 ML IV SCH (16:26)
[2016-12-09] MEDS: INSULIN GLARGINE 100 UNIT/ML SUBCUT SCH (21:08)
[2016-12-10 06:25] LABS: Basophils % 0.5 % (0.0-0.8); Eosinophils # 0.3 10*3/uL (0.0-0.87); Eosinophils % 3.3 % (0.00-10.9); Hematocrit 32.4 VOL% (35.7-47.0); Hemoglobin 9.9 GM/DL (12.0-16.0); Immature Granulocytes % 0.5 %; Immature Granulocytes Absolute 0.04 #; Lymphocytes # 1.4 10*3/uL (1.4-4.0); Lymphocytes % 18.6 % (21.3-54.2); Mean Corpuscular HGB Conc 30.6 GM/DL (32-36); Mean Corpuscular Hemoglobin 22 PG (27-34); Mean Corpuscular Volume 72.5 FL (87-102); Mean Platelet Volume 10.6 FL (9.6-12.0); Monocytes # 0.9 10*3/uL (0.11-0.8); Monocytes % 11.4 % (1.7-12.7); Neutrophils # 4.9 10*3/uL (1.4-7.4); Neutrophils % 65.7 % (38.7-73.9); Platelet Count 524 T/CUMM (130-400); Red Blood Count 4.47 MC/CUMM (3.8-5.5); Red Cell Distribution Width 21.4 % (9.3-17.3); White Blood Count 7.5 T/CUMM (4-12)
--- NOTE | 2016-12-10 08:36 | CT Report ---
History: Colon mass. Elevated CEA Date: 12/10/2016 Study: CT abdomen and pelvis with IV and oral contrast Comparison exam: No previous Technique: Spiral CT sections were obtained from the lung bases to the pubic symphysis following oral contrast and 100 mL Omnipaque [address] exam was performed using one or more of the following dose reduction techniques: Automated exposure control, adjustment of the mA and/or kV according to patient size, or use of iterative reconstruction technique. CT abdomen: The partially visualized lung bases are clear. There is no gross pleural or pericardial effusion. There is an 11 mm ill-defined area of decreased density in the posterior segment of the right lobe of liver inferiorly which does not represent a classic hemangioma or cyst. Consider solitary hepatic metastatic lesion. Spleen, pancreas, adrenal glands, bile ducts, and fluid-filled gallbladder are normal. There is a 7 mm cyst in the upper pole right kidney. The kidneys otherwise are unremarkable. There is renal excretion without hydronephrosis. There is diffuse masslike thickening of the wall of the ascending colon and cecum which measures at least 8.6 cm maximum length. This is consistent with colon carcinoma. There is some localized mesenteric lymphadenopathy in the right lower abdomen, including a 14 mm short axis diameter lymph node as seen on image 90 of the arterial phase portion of the exam. There is no carol bowel obstruction. There is no small bowel dilatation of significance. The appendix is normal. There is no evidence of pneumoperitoneum. CT pelvis: The uterus is not visualized compatible with prior hysterectomy. No pelvic mass or pelvic lymphadenopathy is seen. Impression: Mass of the cecum and ascending colon measuring up to 8.6 cm maximum length. Colon carcinoma is suspected. There is pathologic mesenteric lymphadenopathy. There is an 11 mm solid lesion in the posterior segment of the right lobe of the liver inferiorly which does not represent a classic hemangioma. Consider hepatic metastatic lesion. MRI liver with and without IV contrast may provide clarification as felt clinically necessary. PROCEDURE INTERPRETED AT [facility] [place] DEPARTMENT OF RADIOLOGY Final Report Signed by: Dr. Harmony Cheney
[2016-12-10] MEDS: SODIUM CHLORIDE 0.9% 1,000 ML IV SCH (08:52)
[2016-12-10] MEDS: ASPIRIN EC 81 MG TABLET PO SCH (09:50)
[2016-12-10] MEDS: FLUCONAZOLE 100 MG TABLET PO SCH (09:50)
[2016-12-10] MEDS: LISINOPRIL 10 MG TABLET PO SCH (09:50)
[2016-12-10] MEDS: PANTOPRAZOLE 40 MG VIAL IV SCH (09:51)
[2016-12-10] MEDS: glyBURIDE 5 MG TABLET PO SCH (09:51)
[2016-12-10] MEDS: INSULIN LISPRO 100 UNIT/ML SUBCUT SCH (09:53)
[2016-12-10] MEDS: DESITIN 4OZ/NYSTATIN 15 GRAM MIXTURE PASTE TOP SCH (09:53)
--- NOTE | 2016-12-10 10:52 | Pathology Report from [facility] ---
ACCESSION # : [id number] PATIENT NAME : Amada Olguin ORDERING DR : ADOLFO ALLEN MD CLINICAL HX: Anemia POST-OP DX: Smae SPECIMEN INFO: Colon mass BX (cecal) GROSS DESCRIPTION: The specimen is received in formalin labeled with the patient 's name and consists of a 0.6 x 0.4 cm aggregate of bailey tissue. Submitted in one cassette. DIAGNOSIS FOR AMADA OLGUIN: COLON MASS BIOPSY (CECAL): Invasive adenocarcinoma. SERVICE DATE: 12/09/2016 REPORT DATE: 12/10/2016 PATHOLOGIST: Fatuma Wang M.D. [facility] SYSTEM[facility]il[facility]
--- NOTE | 2016-12-10 10:57 | General Surgery Progress Note ---
Exam - Constitutional Vitals: Period Temp Pulse Resp BP Sys/Lauren Pulse Ox Last 24 Hr 97.3 F-98.9 F 61-80 15-18 107-130/56-78 95-100 Results - Labs CBC & BMP: 12/10/16 05:46 12/07/16 04:32 Quality Measures - VTE Deep Vein Thrombosis/Pulmonary Embolism Present on Admission: No
--- NOTE | 2016-12-10 11:00 | Discharge Summary ---
Hospital Course - Hospital Course Hospital Course: This patient was admitted with symptomatic anemia and she received a colonoscopy and some blood transfusion. Her blood count stabilized and her colonoscopy revealed a right colon mass. She was evaluated with a CEA that was normal and the CT scan showed an 11 mm area that was concerning for possible malignant colon cancer. An MRI was recommended. Because the patient's hemoglobin was stable and she had things needed to take care of at home she elected to go home and do the rest of her workup outpatient which I think is reasonable. We will arrange for her abdominal MRI to evaluate her liver lesion and follow-up the results of this with her in clinic. If she has metastatic disease then she will need to get chemotherapy first and monitor response in her liver prior to putting her through an operation to take out her colon which could delay her chemotherapy treatment. This was discussed with the patient in detail. Discharge Plan - Discharge Data Disposition: Disch To Home/Self Care Condition at Discharge: Stable Discharge Diet: advance to your usual diet Hygiene: no restrictions Weight Bearing at Discharge: full weight bearing Driving: no restrictions Contact your physician if you experience:: fever over 101, Difficulty voiding, Redness or swelling, Nausea/Vomiting, Shortness of breath, Bleeding, pain uncontrolled by pain medications - Discharge Medications Continue Triamterene/Hydrochlorothiazid [Triamterene-Hctz 75-50 mg Tab] 1 each PO QAM Potassium Chloride [Klor-Con M20] 20 meq PO QAM metFORMIN [Glucophage] 1,000 mg PO BID W/MEALS Aspirin EC Tab 81 mg PO QAM Lisinopril 20 mg PO QAM glyBURIDE [Glyburide] 10 mg PO BID W/MEALS Insulin Glargine [Lantus] 20 unit SUBCUT BEDTIME - Follow Up or Referral Follow Up: Cooper Moya MD [Physician] - - Forms/Instructions Additional Discharge Instructions: An abdominal MRI will be scheduled to evaluate the liver lesion. We will call you through the office to discuss the results of his MRI and determine the next course of treatment. Exam - Constitutional Vitals: Period Temp Pulse Resp BP Sys/Lauren Pulse Ox Last 24 Hr 97.3 F-98.9 F 61-80 15-18 107-130/56-78 95-100 General appearance: normal weight, no acute distress - Head Head exam: Present: normal inspection, normocephalic - Eye Eye exam: Present: EOMI Pupils: Present: MYRA, normal accommodation - ENT ENT exam: Present: normal exam - Neck Neck exam: Present: normal inspection - Respiratory Respiratory exam: Present: clear to auscultation bilaterally. Absent: accessory muscle use, chest wall tenderness - Cardiovascular Cardiovascular exam: Present: regular rate and rhythm. Absent: systolic murmur , tachycardia - GI/Abdominal GI/Abdominal exam: Present: soft. Absent: tenderness, rebound - Extremities Exam Extremities exam: Present: normal inspection, normal capillary refill - Back Exam Back exam: Present: normal inspection - Neurological Exam Neurological exam: Present: alert, oriented X3 - Psychiatric Psychiatric exam: Present: normal affect, normal mood - Skin Skin exam: Present: normal color, warm Discharge Results Procedures and tests throughout hospitalization: Pending Orders 12/07/16 12:19 Red Blood Cells Leuko Red Stat Labs on day of discharge: Labs from last 24 hours 12/10/16 12/10/16 12/10/16 07:12 05:46 05:46 WBC 7.5 RBC 4.47 Hgb 9.9 L Hct 32.4 L MCV 72.5 L MCH 22 L MCHC 30.6 L RDW 21.4 H Plt Count 524 H MPV 10.6 Neut % (Auto) 65.7 Lymph % (Auto) 18.6 L Sullivan % (Auto) 11.4 Eos % (Auto) 3.3 Baso % (Auto) 0.5 Neut # (Auto) 4.9 Lymph # (Auto) 1.4 Sullivan # (Auto) 0.9 H Eos # (Auto) 0.3 Baso # (Auto) 0.0 Immature Gran % 0.5 Nucleated RBC % 0.0 Immature Gran # 0.04 Nucleated RBCs # 0.00 POC Glucose 176 H Carcinoembryonic Ag < 0.0 L 12/09/16 12/09/16 12/09/16 20:10 15:45 11:21 WBC RBC Hgb Hct MCV MCH MCHC RDW Plt Count MPV Neut % (Auto) Lymph % (Auto) Sullivan % (Auto) Eos % (Auto) Baso % (Auto) Neut # (Auto) Lymph # (Auto) Sullivan # (Auto) Eos # (Auto) Baso # (Auto) Immature Gran % Nucleated RBC % Immature Gran # Nucleated RBCs # POC Glucose 278 H 96 185 H Carcinoembryonic Ag 12/09/16 09:29 WBC RBC Hgb Hct MCV MCH MCHC RDW Plt Count MPV Neut % (Auto) Lymph % (Auto) Sullivan % (Auto) Eos % (Auto) Baso % (Auto) Neut # (Auto) Lymph # (Auto) Sullivan # (Auto) Eos # (Auto) Baso # (Auto) Immature Gran % Nucleated RBC % Immature Gran # Nucleated RBCs # POC Glucose 274 H Carcinoembryonic Ag DS: Provider Date of admission: 12/06/16 16:46 Primary care physician: . No PCP Attending physician on admission: Meli Guido MD Consults: 12/07/16 11:54 Consult to Physician [CONS] Routine Comment: gi bleed Consulting Provider: Eulogio Cheney Person Notified: aware Date Notified: 12/07/16 Time Notified: 12:05 12/09/16 13:25 Consult to Physician [CONS] Routine Comment: ascending colon CA Consulting Provider: Cooper Moya Consulting Provider Notified: Yes Person Notified: VIANEY Date Notified: 12/09/16 Time Notified: 15:33 Discharging clinician: Cooper Moya MD Expected date of discharge: 12/10/16
[2016-12-10 11:15] VITALS: BP 129/81
--- NOTE | 2017-01-06 12:17 | Pathology Report from [facility] ---
[facility] ACCESSION # : [id number] PATIENT NAME : Amada Olguin ORDERING DR : ADOLFO ALLEN MD CLINICAL HX: Anemia POST-OP DX: Smae SPECIMEN INFO: Colon mass BX (cecal) GROSS DESCRIPTION: The specimen is received in formalin labeled with the patients name and consists of a 0.6 x 0.4 cm aggregate of bailey tissue. Submitted in one cassette. DIAGNOSIS FOR AMADA OLGUIN: COLON MASS BIOPSY (CECAL): Invasive adenocarcinoma. COLLECTED DATE: 12/09/2016 [facility] REPORT DATE: 12/10/2016 SUPPLEMENTAL TEXT: Testing for CRC Targeted Profile performed by [employer], [place], [place]:NGS RESULTS: Pathogenic alterations NOT DETECTED.NGS INTERPRETATION: No pathogenic alterations are detected in the KRAS, NRAS, and BRAF genes. In colorectal carcinoma, the absence of mutation in these genes predicts an increased likelihood of response to treatment with anti-EGFR monoclonal antibodies. Wildtype BRAF also portends a better prognosis compared to mutant BRAF.COMMENTS: Additional testing, such as for microsatellite instability/mismatch repair status, could be considered if clinically applicable. SUPPLEMENTAL DATE: 01/06/2017 ELECTRONICALLY SIGNED BY: Fatuma Wang M.D. 12/10/2016 - 9:12:11 [facility]ITALMaril[facility]
== END 2016-12-10 12:00 | disposition home or self-care (01) | DRG 812 ==
LOC: N.ED 13:17 → N.EDINP 16:46 → SUATTDRO 16:46 → N.EDINP 18:31 → N.5E 18:41
PROVIDERS: ADMIT Internal Medicine; ATTEND Internal Medicine
PROC: COLONBX (2016-12-09 11:05)

== ENCOUNTER 2016-12-30 06:30 | Inpatient (IN) ==
--- NOTE | 2016-12-29 13:37 | EKG Report ---
Stationary ECG Study [facility] Test Date: 12/29/2016 1:36:55 PM Pat Name: HENRI CLARK Department: Room: Gender: F Security Incident Response Specialist: FLORIAN PURVIS 12-30-16 : 1955 Requested by: Cooper Purvis Order Number: [id number] Reading MD: RICHA LEARY Intervals [place] Rate: 87 P: 74 OR: 133 QRS: 56 QRSD: 82 T: 40 QT: 342 QTc: 387 Interpretive Statements SINUS RHYTHM @87BPM; WNL Electronically Signed On 12-30-16 08:58:27 CDT by RICHA LEARY [email or web address]
[2016-12-29 14:11] LABS: Basophils # 0.1 10*3/uL (0.0-0.2); Basophils % 0.5 % (0.0-0.8); Eosinophils # 0.2 10*3/uL (0.0-0.87); Eosinophils % 1.6 % (0.00-10.9); Hematocrit 32.1 VOL% (35.7-47.0); Hemoglobin 9.7 GM/DL (12.0-16.0); Immature Granulocytes % 0.5 %; Immature Granulocytes Absolute 0.05 #; Lymphocytes # 1.6 10*3/uL (1.4-4.0); Lymphocytes % 14.3 % (21.3-54.2); Mean Corpuscular HGB Conc 30.2 GM/DL (32-36); Mean Corpuscular Hemoglobin 21 PG (27-34); Mean Platelet Volume 10.9 FL (9.6-12.0); Monocytes # 1.1 10*3/uL (0.11-0.8); Monocytes % 9.7 % (1.7-12.7); Neutrophils # 8.1 10*3/uL (1.4-7.4); Neutrophils % 73.4 % (38.7-73.9); Platelet Count 494 T/CUMM (130-400); Red Blood Count 4.65 MC/CUMM (3.8-5.5); Red Cell Distribution Width 21.1 % (9.3-17.3); White Blood Count 11.1 T/CUMM (4-12)
[2016-12-29 14:20] LABS: PT Patient Result 10.9 SECS; Partial Thromboplastin Time 25.8 SECS (0-40)
[2016-12-29 14:47] LABS: Albumin 3.1 G/DL (3.4-5.0); Bilirubin,Total 0.6 MG/DL (0.2-1.0); Calcium 10.3 MG/DL (8.5-10.1); Potassium 4.4 MMOL/L (3.5-5.1); Total Protein 7.6 G/DL (6.4-8.3)
--- NOTE | 2016-12-29 15:11 | XRay Report ---
Exam: Chest 2 views Date: December 29, 2016 Comparison: None Reason: Preoperative respiratory evaluation Findings: The cardiac silhouette is normal in size. No focal consolidation, pneumothorax or pleural effusion. No acute osseous process is seen. Impression: No acute cardiopulmonary process is identified. PROCEDURE INTERPRETED AT [facility] DEPARTMENT OF RADIOLOGY Final Report Signed by: Dr. Ruben Avelar
--- NOTE | 2016-12-30 06:47 | History and Physical Update ---
History and Physical Update - History and Physical H&P was reviewed, the patient examined and there: are no changes in the patients condition since last H&P was completed. - Dictation Physical: refer to scanned H&P
[2016-12-30] MEDS ORDERED: ONDANSETRON 4 MG/2 ML VIAL IV PRN ×3 (06:54→14:08)
[2016-12-30] MEDS ORDERED: HYDROmorphone 2 MG/1 ML VIAL IV PRN ×2 (06:54→13:12)
[2016-12-30] MEDS ORDERED: MEPERIDINE 25 MG/1 ML VIAL IV PRN (06:54)
[2016-12-30] MEDS ORDERED: ALVIMOPAN 12 MG CAPSULE ONE (07:17)
[2016-12-30] MEDS ORDERED: SODIUM CHLORIDE 0.9% 100 ML IV ONE (07:17)
[2016-12-30] MEDS ORDERED: ERTAPENEM 1,000 MG VIAL ONE (07:17)
[2016-12-30] MEDS ORDERED: ALVIMOPAN 12 MG CAPSULE PO STA (07:23)
[2016-12-30] MEDS: LACTATED RINGERS 1,000 ML IV SCH ×5 (07:35→23:40)
[2016-12-30] MEDS ORDERED: INSULIN REGULAR 100 UNIT/ML ONE ×3 (08:08→12:44)
[2016-12-30] MEDS ORDERED: PROPOFOL 200 MG/20 ML VIAL IV ONE (08:15)
[2016-12-30] MEDS ORDERED: ONDANSETRON 4 MG/2 ML VIAL ONE ×2 (08:15→13:06)
[2016-12-30] MEDS ORDERED: LIDOCAINE 100 MG/5 ML SYRINGE ONE (08:15)
[2016-12-30] MEDS ORDERED: ROCURONIUM 100 MG/10 ML VIAL IV ONE (08:15)
[2016-12-30] MEDS ORDERED: TISSUE ADHESIVE 1 EACH APPLICATOR TOP ONE (11:44)
[2016-12-30] MEDS ORDERED: ERTAPENEM 1,000 MG in SODIUM CHLORIDE 0.9% 100 ML IV ONE (12:00)
[2016-12-30] MEDS ORDERED: BACITRACIN OINT 0.9 GM PACK TOP ONE (12:27)
[2016-12-30] MEDS ORDERED: INSULIN REGULAR 100 UNIT/ML IV ONE ×2 (12:47)
[2016-12-30] MEDS ORDERED: SEVOFLURANE 1 UNIT/15 MINUTE INH ONE (12:50)
[2016-12-30] MEDS ORDERED: MIDAZOLAM 2 MG/2 ML VIAL ONE (12:51)
[2016-12-30] MEDS ORDERED: LACTATED RINGERS 2,000 ML IV ONE (12:51)
[2016-12-30] MEDS ORDERED: SODIUM CHLORIDE 0.9% 250 ML IV ONE (12:51)
[2016-12-30] MEDS ORDERED: ACETAMINOPHEN 1,000 MG/100 ML VIAL IV ONE (12:51)
--- NOTE | 2016-12-30 12:53 | Operative Note ---
Date of procedure: 12/30/16 Pre-op diagnosis: Right colon cancer Post-op diagnosis: same Procedure: Preoperative diagnosis Right colon cancer Postoperative diagnosis Same Procedures performed 1. Robotic assisted laparoscopic right colectomy 2. Primary repair of ventral incisional umbilical hernia 22 modifier Complications None apparent Specimen Right colon Additional terminal ileum and distal colon partial omentectomy Findings There was a large cecal tumor with bulky lymphadenopathy in the mesentery. All the mesentery was removed and a high ligation of the ileocolic pedicle was performed. The umbilical hernia was repaired with the primary repair using internal retention sutures. The patient had a lot of redundant fat in the abdominal cavity and her pelvic adhesions from her hysterectomy were very dense to her ileum and these 2 factors made the case take more than twice usual length of time but was able to be done safely. Blood loss 100 mL Anesthesia GETA Indications Right colon cancer Description of procedure The patient was taken to the operating room and transferred to the operating table in supine position. Pressure points were padded and SCDs were placed lower extremities. General endotracheal anesthesia was administered. A Day catheter was placed with clear urine output. The patient was prepped and draped with chlorhexidine. Preoperative antibiotics were administered and a timeout was performed. The abdomen was entered in a supraumbilical paramedian location on the left side of the abdominal wall with a Veress needle. An 8 mm skin incision was made with an 11 blade scalpel and penetrating towel clips were used to grasp the abdominal wall skin Veress needle was used to enter the peritoneal cavity confirmed by double click technique. Aspiration was negative. Saline drop test confirmed intraperitoneal location. The Veress needle was used to insufflate the abdominal cavity to 15 mmHg with an initial pressure of 2 mmHg. The Veress needle was removed and a robotic 8 mm trocar was placed blindly. Laparoscope was inserted. There is no evidence of Veress needle or trocar injury. Under direct visualization, and after local anesthetic was administered, 2 additional robotic trochars were placed in the left abdomen one of which was 12 mm in size and the other was 8 mm in size and the robot was docked. An drug safety assistant 5 mm trocar was placed in the left midabdomen the cecum was retracted and the ileocolic pedicle was identified and divided with a vascular stapler. Medial to lateral dissection was performed with visualization of the duodenum and the dissection was then carried up towards the transverse colon. There was some bulky lymphadenopathy in the mesentery of the colon and a high ligation on the right colic and ileocolic pedicle was performed which removed all of these lymph nodes. The right branch of the middle colic artery was divided. A vessel sealer was used to transect these vessels. Ileocolic pedicle was divided with a vascular stapler. The colon was transected at this location after the omentum was taken off the colon with electrocautery using a WYATT stapler. The terminal ileum was then transected also with a WYATT stapler. There were some adhesions to the pelvis from the patient's prior surgery on the terminal ileum that had to be dissected free in some of the terminal ileum got beat up a little bit during the dissection so an additional segment of terminal ileum was removed and sent as a separate specimen. The right ureter was visualized. The lateral dissection was then completed until the colon was freely mobilized completely. A 22 modifier was added. The adhesions in the abdomen in addition to the patient's intra-abdominal fat and redundant colon made this take more than twice usual length of time but was able to be done safely. The robot was then undocked and the laparoscope was reinserted. The additional ileum specimen was grasped and the 8 mm supraumbilical trocar was used to extend an abdominal incision across the midline above the umbilicus. This was placed in this location to repair the patient's umbilical hernia at the same time of the specimen extraction incision. Bovie electrocautery was used into the peritoneal cavity and a medium Will retractor was placed. The specimen was removed and sent to pathology. The transverse colon had an area that was devascularized so an additional segment was removed and there was a good pulse in the mesentery at this location. Part of the omentum was also removed because it was not on a great vascular pedicle and sent to pathology. The anastomosis was then completed after the mesentery was inspected and was free of twisting. A stapled [id number]-[id number] anastomosis was performed in the common enterotomy was closed with a TA 90 mm stapler. The mesenteric defect was large and it was left open. Side to side anastomosis was performed using antiperistaltic technique. The fascial defect was treated by the umbilicus and the umbilical stalk from the hernia sac and the fascia. During this dissection there was some skin burn that occurred because of how thin the skin was over this hernia sac. The fascia was cleared off and #1 interrupted Vicryl sutures were used as internal retention sutures followed by running 0 PDS closure of the fascia. The umbilicus was tacked down with 4-0 Monocryl sutures and the skin incisions were closed with running 4-0 Monocryl sutures and subcuticular sutures at the trocar incisions. Sterile glue was used to close the incisions. Bacitracin dressing was placed over the skin burn at the umbilicus and an abdominal binder was placed. The patient's Day was removed and she was awakened from anesthesia and transferred to recovery. Postoperative plan Advance diet as tolerated Pain control Anesthesia: PEEWEE Surgeon / Physician: Cooper Moya Estimated blood loss: other (100 mL) Specimens: other (right colon additional ileum additional colon omentum) Condition: stable Disposition: PACU Results - Labs CBC & BMP: 12/29/16 14:05 12/29/16 14:05 Discharge Plan - Discharge Medications No Action Triamterene/Hydrochlorothiazid [Triamterene-Hctz 75-50 mg Tab] 1 each PO QAM Potassium Chloride [Klor-Con M20] 20 meq PO QAM metFORMIN [Glucophage] 1,000 mg PO BID W/MEALS Aspirin EC Tab 81 mg PO QAM Lisinopril 20 mg PO QAM glyBURIDE [Glyburide] 10 mg PO BID W/MEALS Insulin Glargine [Lantus] 20 unit SUBCUT BEDTIME - Follow Up or Referral - Forms/Instructions
--- NOTE | 2016-12-30 13:01 | Anesthesia Post-Op ---
Anesthesia Post OP - Post Ansesthetic Evaluation Patient seen in post op: Yes Resp: within normal limits CV: within normal limits Mental: within normal limits Temp: within normal limits [id number]-[id number]-Kxglrlgug: within normal limits Nausea and Vomiting: within normal limits Pain: within normal limits
[2016-12-30] MEDS ORDERED: HYDROmorphone 2 MG/1 ML VIAL ONE (13:06)
[2016-12-30] MEDS ORDERED: LACTATED RINGERS 1,000 ML IV SCH (14:00)
[2016-12-30] MEDS ORDERED: PROMETHAZINE 25 MG/1 ML VIAL IM PRN (14:08)
[2016-12-30] MEDS ORDERED: GLUCAGON 1 MG VIAL IM PRN (14:08)
[2016-12-30] MEDS ORDERED: DEXTROSE 50% 25 GM/50 ML VIAL IV PRN (14:08)
[2016-12-30 14:40] LABS: Basophils % 0.2 % (0.0-0.8); Hematocrit 27.1 VOL% (35.7-47.0); Hemoglobin 8.2 GM/DL (12.0-16.0); Immature Granulocytes % 0.5 %; Immature Granulocytes Absolute 0.07 #; Lymphocytes # 0.8 10*3/uL (1.4-4.0); Lymphocytes % 5.4 % (21.3-54.2); Mean Corpuscular HGB Conc 30.3 GM/DL (32-36); Mean Corpuscular Hemoglobin 21 PG (27-34); Mean Corpuscular Volume 68.6 FL (87-102); Mean Platelet Volume 10.7 FL (9.6-12.0); Monocytes % 6.7 % (1.7-12.7); Neutrophils # 12.7 10*3/uL (1.4-7.4); Neutrophils % 87.2 % (38.7-73.9); Platelet Count 427 T/CUMM (130-400); Red Blood Count 3.95 MC/CUMM (3.8-5.5); Red Cell Distribution Width 20.9 % (9.3-17.3); White Blood Count 14.6 T/CUMM (4-12)
[2016-12-30] MEDS: KETOROLAC 15 MG/1 ML VIAL IV SCH ×2 (15:06→21:02)
[2016-12-30 15:08] LABS: Calcium 8.6 MG/DL (8.5-10.1); Osmolality,Calculated 284.8 MOS/KG (273-304); Potassium 3.6 MMOL/L (3.5-5.1)
[2016-12-30] MEDS: INSULIN REGULAR 100 UNIT/ML SUBCUT SCH ×2 (16:52→21:02)
--- NOTE | 2016-12-30 17:22 | Event Note ---
General Surgery Progress Note Chief complaint This patient is a 61-year-old woman admitted following robotic assisted laparoscopic right colectomy with primary repair of ventral incisional umbilical hernia on 12/30/2016 Interval history The patient is resting well. Her postoperative hemoglobin was 8.7. She has used the restroom and voided since surgery. No flatus or bowel movements yet. She denies any nausea or vomiting. She tolerated some of her diet earlier today. She has not gotten up and walked in the hallway yet. Physical exam Afebrile, normal vital signs Abdominal exam with expected postoperative tenderness Labs Hemoglobin 8.2 White blood cell count 14,600 Electrolytes acceptable Imaging None Assessment and plan Continue diet as tolerated Ambulate in hallway Continue incentive spirometry Continue current pain management Start Lovenox tomorrow
[2016-12-30] MEDS: ALVIMOPAN 12 MG CAPSULE PO SCH (21:02)
[2016-12-31] MEDS: KETOROLAC 15 MG/1 ML VIAL IV SCH ×2 (01:49→10:48)
[2016-12-31 05:59] LABS: Basophils % 0.3 % (0.0-0.8); Eosinophils % 0.4 % (0.00-10.9); Hematocrit 25.8 VOL% (35.7-47.0); Hemoglobin 7.7 GM/DL (12.0-16.0); Immature Granulocytes % 0.5 %; Immature Granulocytes Absolute 0.06 #; Lymphocytes # 1.2 10*3/uL (1.4-4.0); Lymphocytes % 10.6 % (21.3-54.2); Mean Corpuscular HGB Conc 29.8 GM/DL (32-36); Mean Corpuscular Hemoglobin 21 PG (27-34); Mean Corpuscular Volume 70.9 FL (87-102); Mean Platelet Volume 11.3 FL (9.6-12.0); Monocytes # 0.9 10*3/uL (0.11-0.8); Monocytes % 7.7 % (1.7-12.7); Neutrophils # 9.1 10*3/uL (1.4-7.4); Neutrophils % 80.5 % (38.7-73.9); Platelet Count 400 T/CUMM (130-400); Red Blood Count 3.64 MC/CUMM (3.8-5.5); Red Cell Distribution Width 21.2 % (9.3-17.3); White Blood Count 11.2 T/CUMM (4-12)
[2016-12-31 06:26] LABS: Calcium 8.8 MG/DL (8.5-10.1); Osmolality,Calculated 281.1 MOS/KG (273-304); Potassium 4.3 MMOL/L (3.5-5.1)
[2016-12-31] MEDS ORDERED: ENOXAPARIN 40 MG/0.4 ML SYRINGE SUBCUT SCH (06:40)
--- NOTE | 2016-12-31 08:47 | Event Note ---
General Surgery Progress Note Chief complaint This patient is a 61-year-old woman admitted following robotic assisted laparoscopic right colectomy with primary repair of ventral incisional umbilical hernia on 12/30/2016 Interval history No events overnight. Hemoglobin 7.7 from 8.2 yesterday. Patient is tolerating her liquids but had some nausea with solid food. She is belching some has not passed gas yet. Her pain is well controlled. She is up walking in the hallways. Creatinine is up a little bit to 1.1. White blood cell count is normal this morning. Physical exam Afebrile, normal vital signs Abdominal exam with expected postoperative tenderness. Incisions are clean and dry. Umbilical area has some necrotic tissue that looks like it will just slough and heal on its own. Labs Hemoglobin 7.7 White blood cell count normal Electrolytes acceptable Creatinines up to 1.1 Imaging None Assessment and plan Continue diet as tolerated Incentive spirometry Ambulate in hallway Continue current pain management Start Lovenox prophylaxis today 40 mg subcu daily Repeat labs tomorrow and plan for discharge tomorrow if doing well
[2016-12-31] MEDS: ALVIMOPAN 12 MG CAPSULE PO SCH ×2 (09:15→21:15)
[2016-12-31] MEDS: PANTOPRAZOLE 40 MG TABLET PO SCH (09:17)
[2016-12-31] MEDS: ASPIRIN EC 81 MG TABLET PO SCH (09:17)
[2016-12-31] MEDS: ENOXAPARIN 40 MG/0.4 ML SYRINGE SUBCUT SCH (09:18)
[2016-12-31] MEDS: INSULIN REGULAR 100 UNIT/ML SUBCUT SCH ×4 (09:20→21:15)
[2016-12-31] MEDS: DEXT 5% NACL 0.45% KCL 20 MEQ 20 MEQ/1,000 ML BAG IV SCH ×2 (11:08→23:46)
[2016-12-31] MEDS: HYDROmorphone 2 MG/1 ML VIAL IV PRN ×2 (11:09→18:02)
[2017-01-01] MEDS: HYDROmorphone 2 MG/1 ML VIAL IV PRN ×3 (00:01→10:52)
[2017-01-01] MEDS: LACTATED RINGERS 1,000 ML IV SCH (01:27)
[2017-01-01 01:28] LABS: Basophils % 0.3 % (0.0-0.8); Eosinophils # 0.1 10*3/uL (0.0-0.87); Eosinophils % 0.9 % (0.00-10.9); Hematocrit 21.9 VOL% (35.7-47.0); Hemoglobin 6.5 GM/DL (12.0-16.0); Immature Granulocytes % 0.6 %; Immature Granulocytes Absolute 0.07 #; Lymphocytes # 1.8 10*3/uL (1.4-4.0); Lymphocytes % 15.2 % (21.3-54.2); Mean Corpuscular HGB Conc 29.7 GM/DL (32-36); Mean Corpuscular Hemoglobin 21 PG (27-34); Mean Platelet Volume 11.4 FL (9.6-12.0); Monocytes # 1.1 10*3/uL (0.11-0.8); Monocytes % 9.3 % (1.7-12.7); Neutrophils # 8.6 10*3/uL (1.4-7.4); Neutrophils % 73.7 % (38.7-73.9); Platelet Count 361 T/CUMM (130-400); Red Blood Count 3.13 MC/CUMM (3.8-5.5); Red Cell Distribution Width 20.7 % (9.3-17.3); White Blood Count 11.6 T/CUMM (4-12)
[2017-01-01 01:47] LABS: Calcium 8.1 MG/DL (8.5-10.1); Magnesium 1.3 MG/DL (1.8-2.4); Osmolality,Calculated 270.8 MOS/KG (273-304); Potassium 4.1 MMOL/L (3.5-5.1)
[2017-01-01] MEDS ORDERED: SODIUM CHLORIDE 0.9% 250 ML IV PRN (07:04)
[2017-01-01] MEDS: INSULIN REGULAR 100 UNIT/ML SUBCUT SCH ×4 (09:09→21:33)
[2017-01-01] MEDS: PANTOPRAZOLE 40 MG TABLET PO SCH (09:11)
[2017-01-01] MEDS: ASPIRIN EC 81 MG TABLET PO SCH (09:11)
[2017-01-01] MEDS: ALVIMOPAN 12 MG CAPSULE PO SCH ×2 (09:11→21:33)
[2017-01-01] MEDS: ENOXAPARIN 40 MG/0.4 ML SYRINGE SUBCUT SCH (09:12)
--- NOTE | 2017-01-01 12:15 | Event Note ---
General Surgery Progress Note Chief complaint This patient is a 61-year-old woman admitted following robotic assisted laparoscopic right colectomy with primary repair of ventral incisional umbilical hernia on 12/30/2016 Interval history No events overnight. Hemoglobin is 6.5 this morning. The patient is not tachycardic or hypotensive and has no orthostatic symptoms. He is up walking in the hallway without any difficulty. Her creatinine has normalized. She is urinating well and passing gas but no bowel movements yet. No nausea or vomiting. Her pain is decreasing and she feels better today. Physical exam Afebrile, normal vital signs Abdominal exam with expected postoperative tenderness. Incisions are clean and dry. Umbilical area has some necrotic tissue that looks like it will just slough and heal on its own. No wound infection. Labs Hemoglobin 6.5 White blood cell count normal Electrolytes acceptable Creatinines down to 0 point Imaging None Assessment and plan Continue diabetic diet Transfuse 2 units packed red blood cells today Repeat labs tomorrow and discharge home tomorrow if hemoglobin responds and is stable. This appears to be a chronic anemia and I do not think the patient is actively bleeding.
--- NOTE | 2017-01-01 16:18 | Pathology Report from [facility] ---
[facility] [place] ACCESSION # : [id number] PATIENT NAME : Amada Olguin ORDERING DR : Cooper Moya MD CLINICAL HX: Colon CA POST-OP DX: Same SPECIMEN INFO: #1 RT colon #2 Omentum #3 Distal margin GROSS DESCRIPTION: #1 Received in formalin labeled with the patients name AMADA OLGUIN and #1 consists of a segment of colon to include the cecum measuring 46.0 cm in length and measuring up to 5.0 cm in greatest diameter. The terminal ileum measures 8.0 cm. The appendix is present which measures 8.5 x 0.6 cm. On opening the colon reveals a fungating tumor mass within the cecum almost circumferential measuring 12.0 x 6.5 x 2.5 cm. The tumor involves the ileocecal valve and is situated 7.0 cm from the proximal margin, 40 cm from the distal margin and 3.0 cm from the mesenteric margin. Grossly the tumor invades the bowel wall. Lymph nodes will be submitted for fixation. Sections submitted : 1A proximal margin 1B distal margin, 1C mesenteric margin, 1D thru 1F tumor, 1G appendix. Received separately in the container are two segments of small bowel measuring 3.0 x 2.0 cm and 20.0 x 2.2 cm respectively. No other masses grossly appreciated. The surgical margins from both segments submitted in cassettes 1H thru 1K; 1L and 1M lymph nodes.#2 Received in formalin labeled with the patients name AMADA OLGUIN and #2 consists of an omental fragment measuring 29.5 x 2.5 x 1.5 cm. Sectioning the tissue reveals no masses or other lesions. Filter Press Operator sections submitted in cassettes 2A and 2B.#3 Received in formalin labeled with the patients name AMADA OLGUIN and #3 consists of a segment of colon measuring 5.0 x 3.7 cm with no margin grossly involved. The mucosal surface displays normal appearing mucosal folds with no masses or other lesions appreciated. The surgical margins are submitted in cassettes 3A and 3B, with lymph nodes submitted in cassette 3C following fixation. DIAGNOSIS FOR AMADA OLGUIN: #1 #2 #3 COLON, PARTIAL ILEOCOLECTOMY (Intact, 46.0 x 5.0 cm): TYPE: Invasive adenocarcinoma. TUMOR SITE: Cecum TUMOR SIZE: 12.0 x 6.5 cm. MACROSCOPIC TUMOR PERFORATION: Absent. HISTOLOGIC GRADE: Moderately-differentiated. MICROSCOPIC TUMOR EXTENSION: Through muscularis propria. MARGINS, PROXIMAL: Uninvolved by carcinoma. DISTAL: Uninvolved by carcinoma. MESENTERIC: Uninvolved by carcinoma, distance = 3.0 cm. LYMPH VASCULAR INVASION: Absent. PERINEURAL INVASION: Absent. TUMOR DEPOSITS: Not identified. LYMPH NODES: NUMBER EXAMINED: 14. NUMBER INVOLVED: 0. ADDITIONAL FINDINGS: None.AJCC PATHOLOGIC STAGE IIA ([id number]). COLLECTED DATE: 12/30/2016 [facility] REPORT DATE: 01/01/2017 ELECTRONICALLY SIGNED BY: Fatuma Wang M.D. 01/01/2017 - 12:48:18 [facility]
[2017-01-01] MEDS: glyBURIDE 5 MG TABLET PO SCH (16:56)
[2017-01-01] MEDS ORDERED: INSULIN GLARGINE 100 UNIT/ML SUBCUT SCH (21:00)
[2017-01-01 21:29] LABS: Hematocrit 28.7 VOL% (35.7-47.0)
[2017-01-01 21:30] LABS: Hemoglobin 8.9 GM/DL (12.0-16.0)
[2017-01-02 03:40] LABS: Basophils % 0.3 % (0.0-0.8); Eosinophils # 0.3 10*3/uL (0.0-0.87); Eosinophils % 2.4 % (0.00-10.9); Hematocrit 31.8 VOL% (35.7-47.0); Hemoglobin 9.7 GM/DL (12.0-16.0); Immature Granulocytes % 0.5 %; Immature Granulocytes Absolute 0.06 #; Lymphocytes # 1.3 10*3/uL (1.4-4.0); Lymphocytes % 11.1 % (21.3-54.2); Mean Corpuscular HGB Conc 30.5 GM/DL (32-36); Mean Corpuscular Hemoglobin 22 PG (27-34); Mean Corpuscular Volume 71.6 FL (87-102); Mean Platelet Volume 11.2 FL (9.6-12.0); Neutrophils # 9.4 10*3/uL (1.4-7.4); Neutrophils % 77.7 % (38.7-73.9); Platelet Count 426 T/CUMM (130-400); Red Blood Count 4.44 MC/CUMM (3.8-5.5); Red Cell Distribution Width 21.1 % (9.3-17.3)
[2017-01-02 04:07] LABS: Calcium 8.8 MG/DL (8.5-10.1); Osmolality,Calculated 272.7 MOS/KG (273-304); Potassium 4.4 MMOL/L (3.5-5.1)
[2017-01-02] MEDS: INSULIN REGULAR 100 UNIT/ML SUBCUT SCH ×2 (08:50→12:42)
[2017-01-02] MEDS: ASPIRIN EC 81 MG TABLET PO SCH (08:52)
[2017-01-02] MEDS: PANTOPRAZOLE 40 MG TABLET PO SCH (08:53)
[2017-01-02] MEDS: ENOXAPARIN 40 MG/0.4 ML SYRINGE SUBCUT SCH (08:53)
[2017-01-02] MEDS: ALVIMOPAN 12 MG CAPSULE PO SCH (08:53)
[2017-01-02] MEDS: glyBURIDE 5 MG TABLET PO SCH (08:53)
[2017-01-02] MEDS ORDERED: LISINOPRIL 20 MG TABLET PO SCH (09:00)
[2017-01-02] MEDS ORDERED: POTASSIUM CHLORIDE 20 MEQ TABLET PO SCH (09:00)
--- NOTE | 2017-01-02 09:47 | Event Note ---
General Surgery Progress Note Chief complaint This patient is a 61-year-old woman admitted following robotic assisted laparoscopic right colectomy with primary repair of ventral incisional umbilical hernia on 12/30/2016 Interval history The patient did well overnight. She is tolerating regular diet with no nausea or vomiting. She is passing gas but has not had a bowel movement yet. She is up walking around in the hallway. Pain is well controlled. She responded to her blood transfusion yesterday well Physical exam Afebrile, normal vital signs Abdominal exam with expected postoperative tenderness. Incisions are clean and dry. Umbilical area has some necrotic tissue that looks like it will just slough and heal on its own. No wound infection. No significant seroma Labs Hemoglobin 9.7 White blood cell count normal Electrolytes acceptable Imaging None Assessment and plan Discharge home Continue abdominal binder and compressive dressing with bacitracin covering the necrotic bellybutton wound. Follow-up in 2 weeks in clinic
--- NOTE | 2017-01-02 10:01 | Discharge Summary ---
Hospital Course - Hospital Course Hospital Course: Patient is a 61-year-old female who underwent robotic assisted laparoscopic right colectomy with primary repair of ventral incisional umbilical hernia for right colon cancer. Pathology described below. Postoperatively she progressed well. Initially, she required IV narcotics for pain management, but progressed appropriately. She tolerated oral intake, activity, and was voiding passing flatus without difficulty at the time of discharge. She takes did experience blood loss anemia and required transfusion of 2 units of packed red blood cells to which she appropriately responded as well. Patient was discharged home in good condition. No comp occasions to note. Diagnosis - Discharge Diagnosis (1) Acute blood loss anemia Status: Acute (2) Colonic mass Status: Acute (3) Diabetes mellitus Status: Chronic (4) Hypertension Status: Chronic (5) Adenocarcinoma of colon Status: Acute Specialty Discharge - Follow Up or Referrals Follow up with: Cooper Moya MD [Physician] - 01/08/17 10:15 am Discharge Plan - Discharge Data Disposition: Disch To Home/Self Care Condition at Discharge: Stable Discharge Diet: other (Low residue diet as below. ) Activity: no lifting (> 5-10 lb.) Hygiene: may shower (Do not soak or submerge wounds. Do not rub wounds. Pat dry. ) Driving: not until seen by doctor Contact your physician if you experience:: fever over 101, Difficulty voiding, Redness or swelling, Nausea/Vomiting, Shortness of breath, Bleeding, pain uncontrolled by pain medications Wound / Dressing Care Instructions: Umbilical wound: clean daily with soap and water. Apply triple antibiotic ointment, ball of gauze with new, clean bandage and reapply abdominal binder. - Discharge Medications New HYDROcodone/ACETAMIN 7.5-325 [[place] 7.5-325] 1 tablet PO Q4H PRN #30 tablet PRN Reason: Pain Moderate To Severe (4-10) Continue Triamterene/Hydrochlorothiazid [Triamterene-Hctz 75-50 mg Tab] 1 each PO QAM Potassium Chloride [Klor-Con M20] 20 meq PO QAM metFORMIN [Glucophage] 1,000 mg PO BID W/MEALS Aspirin EC Tab 81 mg PO QAM Lisinopril 20 mg PO QAM glyBURIDE [Glyburide] 10 mg PO BID W/MEALS Insulin Glargine [Lantus] 20 unit SUBCUT BEDTIME - Follow Up or Referral Follow Up: Cooper Moya MD [Physician] - 01/08/17 10:15 am - Forms/Instructions Instructions: Low Fiber Diet (GEN), Colectomy (DC), Abdominal Binder (DC) Exam - Constitutional Vitals: Period Temp Pulse Resp BP Sys/Lauren Pulse Ox Last 24 Hr 97.2 F-99.9 F 74-84 16-18 111-146/69-81 95-100 General appearance: no acute distress - Head Head exam: Present: normal inspection, normocephalic - Eye Eye exam: Absent: conjunctival injection, scleral icterus - Respiratory Respiratory exam: Present: clear to auscultation bilaterally - Cardiovascular Cardiovascular exam: Present: regular rate and rhythm - GI/Abdominal GI/Abdominal exam: Present: normal bowel sounds, tenderness (Appropriate postoperative tenderness. No guarding, rigidity, abdominal distention.), soft, other (Surgical dressings are intact, clean and dry.) - Extremities Exam Extremities exam: Absent: calf tenderness, edema - Neurological Exam Neurological exam: Present: alert, oriented X3 - Psychiatric Psychiatric exam: Present: normal affect, normal mood - Skin Skin exam: Present: normal color, warm Discharge Results Procedures and tests throughout hospitalization: Pathology: Colon resection of the partial ileocolectomy revealed invasive adenocarcinoma which was moderately differentiated with extension through the muscularis propria with absent lymph node or vascular invasion Labs on day of discharge: Labs from last 24 hours 01/02/17 01/02/17 01/02/17 07:09 02:53 02:53 WBC 12.0 RBC 4.44 D Hgb 9.7 L Hct 31.8 L MCV 71.6 L MCH 22 L MCHC 30.5 L RDW 21.1 H Plt Count 426 H MPV 11.2 Neut % (Auto) 77.7 H Lymph % (Auto) 11.1 L [place] % (Auto) 8.0 Eos % (Auto) 2.4 Baso % (Auto) 0.3 Neut # (Auto) 9.4 H Lymph # (Auto) 1.3 L [place] # (Auto) 1.0 H Eos # (Auto) 0.3 Baso # (Auto) 0.0 Immature Gran % 0.5 Nucleated RBC % 0.0 Immature Gran # 0.06 Nucleated RBCs # 0.00 Sodium 138 Potassium 4.4 Chloride 103 Carbon Dioxide 28 Anion Gap 11.4 BUN 4 L Creatinine 0.80 GFR Calculation 100 BUN/Creatinine Ratio 5.00 L Glucose 118 H POC Glucose 197 H Calculated Osmolality 272.7 L Calcium 8.8 Blood Type Antibody Screen Crossmatch Blood Bank Comment 01/01/17 01/01/17 01/01/17 21:20 19:14 15:40 WBC RBC Hgb 8.9 L D Hct 28.7 L MCV MCH MCHC RDW Plt Count MPV Neut % (Auto) Lymph % (Auto) [place] % (Auto) Eos % (Auto) Baso % (Auto) Neut # (Auto) Lymph # (Auto) [place] # (Auto) Eos # (Auto) Baso # (Auto) Immature Gran % Nucleated RBC % Immature Gran # Nucleated RBCs # Sodium Potassium Chloride Carbon Dioxide Anion Gap BUN Creatinine GFR Calculation BUN/Creatinine Ratio Glucose POC Glucose 177 H 238 H Calculated Osmolality Calcium Blood Type Antibody Screen Crossmatch Blood Bank Comment 01/01/17 01/01/17 11:14 07:04 WBC RBC Hgb Hct MCV MCH MCHC RDW Plt Count MPV Neut % (Auto) Lymph % (Auto) [place] % (Auto) Eos % (Auto) Baso % (Auto) Neut # (Auto) Lymph # (Auto) [place] # (Auto) Eos # (Auto) Baso # (Auto) Immature Gran % Nucleated RBC % Immature Gran # Nucleated RBCs # Sodium Potassium Chloride Carbon Dioxide Anion Gap BUN Creatinine GFR Calculation BUN/Creatinine Ratio Glucose POC Glucose 292 H Calculated Osmolality Calcium Blood Type Cancelled Antibody Screen Cancelled Crossmatch See Detail Blood Bank Comment Cancelled - Imaging and Cardiology Procedure: Chest x-ray: image reviewed by me, report reviewed by me DS: Provider Date of admission: 12/30/16 06:30 Primary care physician: . No PCP Attending physician on admission: Cooper Moya MD Consults: 12/30/16 16:42 Consult to Dietitian [CONS] Routine Reason for Dietitian: Dietary Consult Consult to Pastoral Services [CONS] Routine Comment: Pastoral Screen: Request Senior Materials Analyst Visit Pastoral Screen Source of Request: Patient Discharging clinician: Jenae Levine PA-C
[2017-01-02] MEDS ORDERED: SODIUM PHOSPHATE ENEMA 133 ML BOTTLE RECTAL ONE (11:18)
[2017-01-02 11:39] VITALS: BP 150/93
--- NOTE | 2017-01-07 07:52 | Physician Query Form ---
CLICK EDIT DOCUMENT TO SELECT QUERY ANSWER --> OK --> SIGN Morenita Rico RN, CCDS Certified Clinical Ste[employer]lech[employer] Jockey W) [phone] (f) [phone] [email or web address] PROVIDERS: Make your selection(s) from the choices in EACH section by typing an "x" and enter comments in the comment section. Please use your independent medical judgment in providing your response. This request does not imply that any particular answer is desired or expected. CLINICAL INDICATORS: (Providers should not edit this section) The medical record indicates that the patient had a right colectomy, HH trended down to 6.5/21.9 and the patient was given 2 units of blood. Based on the above, could you clarify which of the following conditions you are evaluating, treating, and/or monitoring? ( ) Blood loss anemia ( ) acute ( ) chronic ( ) acute on chronic ( ) Acute blood loss anemia on baseline chronic anemia ( ) Acute blood loss anemia as a complication of a procedure ( ) Iron deficiency anemia not associated with blood loss ( ) Dilutional anemia due to IV fluids ( ) Anemia due to chemotherapy ( ) Anemia due to neoplastic disease ( ) Anemia due to chronic kidney disease ( ) Pernicious anemia ( ) Aplastic anemia ( ) Hemolytic anemia ( ) immune ( ) non-immune - please specify cause: ( ) Anemia due to other condition, please specify: (x) Clinically unable to determine COMMENTS: PLEASE ALSO DOCUMENT RESPONSE IN PROGRESS NOTES AND/OR DISCHARGE SUMMARY Use of terms such as suspected, likely, or probable (associated with a specific diagnosis that is being evaluated, monitored, or treated as if it exists) are acceptable and can be restated in the discharge summary if not ruled out. MTDD
== END 2017-01-02 14:08 | disposition home or self-care (01) | DRG 331 ==
LOC: N.OR 06:30 → N.SDSINP 06:30 → EDSTATUS 13:30 → N.3E 14:07
PROVIDERS: ADMIT Surgery; ATTEND Surgery